=== PATIENT | female | born 1985 | race Caucasian/White ===

== ENCOUNTER 2016-08-25 17:13 | Inpatient (IN) | payer BC ==
[~2016-08-25] VITALS: Ht 162.6 cm; Wt 86.2 kg
[2016-08-25 17:13] VITALS: BP_SYST 149
[2016-08-25] MEDS ORDERED: ASPIRIN 81 MG TAB.CHEW PO ONE (17:30)
[2016-08-25] MEDS ORDERED: IBUPROFEN 800 MG TABLET PO ONE (17:30)
[2016-08-25 17:49] LABS: BASOPHILS % (AUTO) 0.5 % (0.0-2.0); EOSINOPHILS # (AUTO) 0.1 K/uL (0.0-0.4); EOSINOPHILS % (AUTO) 0.8 % (0.0-4.0); HEMATOCRIT 41.7 % (36-48); HEMOGLOBIN 13.6 g/dL (12.0-16.0); LYMPHOCYTES # (AUTO) 3.4 K/uL (1.0-5.5); LYMPHOCYTES % (AUTO) 39.8 % (20.5-51.5); MEAN CORPUSCULAR HEMOGLOBIN 27 pg (27-31); MEAN CORPUSCULAR HGB CONC 33 % (32-36); MEAN CORPUSCULAR VOLUME 82 fL (79.0-98.0); MONOCYTES # (AUTO) 0.6 K/uL (0.0-1.0); MONOCYTES % (AUTO) 7.2 % (1.7-9.3); NEUTROPHILS # (AUTO) 4.5 K/uL (1.8-7.7); NEUTROPHILS % (AUTO) 51.7 % (40.0-70.0); PLATELET COUNT (AUTO) 358 K/uL (130-430); RED BLOOD CELL COUNT(AUTO) 5.12 MIL/uL (4.2-6.2); RED CELL DISTRIBUTION WIDTH 12.6 % (9.0-15.0); WHITE BLOOD COUNT (AUTO) 8.6 K/uL (4.8-10.8)
[2016-08-25 17:58] LABS: CALCIUM 9.1 mg/dL (8.4-11.0); CREATININE 0.95 mg/dL (0.55-1.30); POTASSIUM 3.3 mmol/L (3.5-5.1)
[2016-08-25 18:05] LABS: TOTAL BILIRUBIN 1.1 mg/dL (0.0-1.0); TOTAL PROTEIN, SERUM 8.2 g/dL (6.4-8.3)
[2016-08-25 18:11] LABS: BILIRUBIN,URINE NEGATIVE (NEGATIVE); BLOOD, URINE 1+ (NEGATIVE); CLARITY/URINE CLEAR (CLEAR); COLOR,URINE YELLOW (YELLOW); GLUCOSE,URINE NEGATIVE (NEGATIVE); KETONES,URINE NEGATIVE (NEGATIVE); LEUKOCYTE ESTERASE ,URINE NEGATIVE (NEGATIVE); NITRITE, URINE NEGATIVE (NEGATIVE); PH,URINE 6.5 (5.0-8.0); PROTEIN URINE NEGATIVE (NEGATIVE); UROBILINOGEN,URINE 0.2 (0.2-1.0)
[2016-08-25] MEDS ORDERED: POTASSIUM CHLORIDE 20 MEQ TAB.PRT.SR PO ONE (18:15)
[2016-08-25 18:31] LABS: PROTHROMBIN TIME 10.8 SECS (9.5-12.5)
[2016-08-25 18:35] LABS: BACTERIA,URINE FEW /HPF (None Seen); RBC,URINE 0-3 /HPF (0-3); WBC,URINE 0-3 /HPF (0-3)
[2016-08-25] MEDS ORDERED: KETOROLAC TROMETHAMINE 15 MG VIAL IVP PRN (21:00)
[2016-08-25] MEDS ORDERED: ONDANSETRON HCL 4 MG/2 ML VIAL IVP PRN (21:00)
[2016-08-25] MEDS ORDERED: TEMAZEPAM 15 MG CAPSULE PO PRN (21:00)
[2016-08-25] MEDS ORDERED: ACETAMINOPHEN 325 MG TABLET PO PRN (21:00)
[2016-08-25] MEDS ORDERED: MORPHINE 2 MG/ML INJ. SYRINGE IVP PRN (21:00)
[2016-08-25 21:13] VITALS: BP_SYST 151
[2016-08-25] MEDS ORDERED: LORazepam 1 MG TABLET PO PRN (22:15)
[2016-08-25] MEDS ORDERED: INSULIN REGULAR, HUMAN 100 UNITS/ML, 10 ML VIAL (novoLIN R) SUBCUT PRN (22:15)
[2016-08-25] MEDS ORDERED: DEXTROSE 50% JECT 50 ML DISP.SYRIN IVP PRN (22:15)
[2016-08-26 00:15] VITALS: BP_SYST 122
[2016-08-26 04:01] VITALS: BP_SYST 100
[2016-08-26 04:44] LABS: BARBITURATE, URINE NEGATIVE (NEG <=200); BENZODIAZEPINE, URINE NEGATIVE (NEG <=150); CANNABINOID, URINE NEGATIVE (NEG <=50); COCAINE, URINE NEGATIVE (NEG <=150); METHAMPHETAMINES SCREEN,URINE NEGATIVE (NEG <=500); OPIATE, URINE NEGATIVE (NEG <=100); PHENCYCLIDINE SCREEN,URINE NEGATIVE (NEG <=25); UR TRICYCLIC ANTIDEPRESSANTS NEGATIVE (NEG <=300); URINE AMPHETAMINE NEGATIVE (NEG <=500); URINE METHADONE NEGATIVE (NEG <=200); URINE OXYCODONE SCREEN NEGATIVE (NEG <=100); URINE PROPOXYPHENE SCREEN NEGATIVE (NEG <=300)
[2016-08-26 06:41] LABS: BASOPHILS % (AUTO) 0.4 % (0.0-2.0); EOSINOPHILS % (AUTO) 0.4 % (0.0-4.0); HEMATOCRIT 37.9 % (36-48); HEMOGLOBIN 12.9 g/dL (12.0-16.0); LYMPHOCYTES # (AUTO) 3.1 K/uL (1.0-5.5); LYMPHOCYTES % (AUTO) 42.7 % (20.5-51.5); MEAN CORPUSCULAR HEMOGLOBIN 28 pg (27-31); MEAN CORPUSCULAR HGB CONC 34 % (32-36); MEAN CORPUSCULAR VOLUME 81 fL (79.0-98.0); MONOCYTES # (AUTO) 0.5 K/uL (0.0-1.0); NEUTROPHILS # (AUTO) 3.7 K/uL (1.8-7.7); NEUTROPHILS % (AUTO) 49.5 % (40.0-70.0); PLATELET COUNT (AUTO) 299 K/uL (130-430); RED BLOOD CELL COUNT(AUTO) 4.68 MIL/uL (4.2-6.2); RED CELL DISTRIBUTION WIDTH 12.3 % (9.0-15.0); WHITE BLOOD COUNT (AUTO) 7.3 K/uL (4.8-10.8)
[2016-08-26 06:51] LABS: ANION GAP 6 (5-15); CALCIUM 8.7 mg/dL (8.4-11.0); CHLORIDE 104 mmol/L (98-107); GLUCOSE 106 mg/dL (70-99); POTASSIUM 3.8 mmol/L (3.5-5.1); SODIUM SERUM 139 mmol/L (136-145)
[2016-08-26 06:52] LABS: ALANINE AMINOTRANSFERASE 30 U/L (12-78); ALBUMIN 3.5 g/dL (3.4-4.8); ASPARTATE AMINOTRANSFERASE 17 U/L (10-37); CREATININE 0.97 mg/dL (0.55-1.30); GFR AFRICAN AMERICAN 86 mL/min (>90); TOTAL BILIRUBIN 1.2 mg/dL (0.0-1.0); TOTAL PROTEIN, SERUM 7.4 g/dL (6.4-8.3); UREA NITROGEN, BLOOD 8 mg/dL (8-21)
[2016-08-26 06:53] LABS: CHOLESTEROL 135 mg/dL (<200); FREE T4 (FREE THYROXINE) 0.9 ng/dL (0.6-1.6); HDL CHOLESTEROL 29 mg/dL (>55); LDL CHOLESTEROL 89 mg/dL (<100); TRIGLYCERIDES 131 mg/dL (30-150)
[2016-08-26 07:32] LABS: THYROID STIMULATING HORMONE 1.31 uIu/mL (0.34-4.82)
[2016-08-26 08:00] VITALS: BP_SYST 127
[2016-08-26 12:27] VITALS: BP_SYST 124
[2016-08-26 16:29] VITALS: BP_SYST 126
[2016-08-26] MEDS ORDERED: METO25TA6 PO (16:46)
[2016-08-26 16:51] VITALS: BP_SYST 128
== END 2016-08-26 18:00 | disposition home or self-care (01) | DRG 313 ==
LOC: SED 17:13 → STU 20:12
PROVIDERS: ADMIT Internal Medicine; ATTEND Internal Medicine
DX: R07.89 Other chest pain (principal); E66.9 Obesity, unspecified; E78.5 Hyperlipidemia, unspecified; E87.6 Hypokalemia; J32.9 Chronic sinusitis, unspecified; R03.0 Elevated blood-pressure reading, without diagnosis of hypertension; R73.9 Hyperglycemia, unspecified; R00.0 Tachycardia, unspecified; F41.9 Anxiety disorder, unspecified; Z83.3 Family history of diabetes mellitus; Z68.32 Body mass index [BMI] 32.0-32.9, adult; Z88.1 Allergy status to other antibiotic agents; Z83.49 Family history of other endocrine, nutritional and metabolic diseases; Z82.49 Family history of ischemic heart disease and other diseases of the circulatory system; Z81.8 Family history of other mental and behavioral disorders
CPT/HCPCS: 36415; 70486-TC; 71010; 76700-TC; 80053; 80061; 80307; 81000-TC; 81025; 82306; 82962; 83036; 83735-TC; 83880; 84439; 84443-TC; 84484; 84703; 85025; 85379; 85610-TC; 85730-TC; 93005; 93306; 99285; J1815

== ENCOUNTER 2020-10-23 01:09 | Emergency (ER) | payer BC ==
[~2020-10-23] VITALS: Ht 167.6 cm; Wt 88.5 kg
[~2020-10-23 01:09] MED LIST: METO25TA6 PO
[2020-10-23 01:20] VITALS: BP_SYST 154
[2020-10-23 01:54] LABS: BASOPHILS # (AUTO) 0.1 K/uL (0.0-0.2); BASOPHILS % (AUTO) 0.7 % (0.0-2.0); EOSINOPHILS # (AUTO) 0.1 K/uL (0.0-0.4); EOSINOPHILS % (AUTO) 1.8 % (0.0-4.0); HEMATOCRIT 40.8 % (36-48); HEMOGLOBIN 13.8 g/dL (12.0-16.0); LYMPHOCYTES # (AUTO) 2.5 K/uL (1.0-5.5); LYMPHOCYTES % (AUTO) 30.8 % (20.5-51.5); MEAN CORPUSCULAR HEMOGLOBIN 29 pg (27-31); MEAN CORPUSCULAR HGB CONC 34 % (32-36); MEAN CORPUSCULAR VOLUME 86 fL (79.0-98.0); MONOCYTES # (AUTO) 0.5 K/uL (0.0-1.0); MONOCYTES % (AUTO) 6.7 % (1.7-9.3); NEUTROPHILS # (AUTO) 4.8 K/uL (1.8-7.7); PLATELET COUNT (AUTO) 319 K/uL (130-430); RED BLOOD CELL COUNT(AUTO) 4.77 MIL/uL (4.2-6.2); RED CELL DISTRIBUTION WIDTH 13.1 % (9.0-15.0)
[2020-10-23 02:03] LABS: CALCIUM 8.7 mg/dL (8.4-11.0); CREATININE 1.03 mg/dL (0.55-1.30); POTASSIUM 3.6 mmol/L (3.5-5.1)
[2020-10-23 02:09] LABS: ALBUMIN 3.5 g/dL (3.4-4.8)
[2020-10-23] MEDS ORDERED: LABETALOL 100 MG/ 20ML VIAL ONE (03:05)
[2020-10-23] MEDS ORDERED: METO-442 PO (04:01)
[2020-10-23] MEDS ORDERED: NS 500 ML IV ONE (04:04)
[2020-10-23 04:49] VITALS: BP_SYST 126
== END 2020-10-23 04:49 | disposition home or self-care (01) ==
LOC: SED 01:09
DX: I10 Essential (primary) hypertension (principal); R07.89 Other chest pain; Z79.899 Other long term (current) drug therapy; Z88.1 Allergy status to other antibiotic agents
CPT/HCPCS: 36415; 71045; 80053; 81025; 84484; 85025; 93005; 96361; 96374; 99291; J3490; J7040

== ENCOUNTER 2021-01-01 06:11 | Day surgery (SDC) | payer BC, SELFPAY ==
[~2021-01-01] VITALS: Ht 162.6 cm; Wt 90.7 kg
[~2021-01-01 06:11] MED LIST changes: +METO-442 PO
[2021-01-01] MEDS ORDERED: ACETAMINOPHEN I.V. 1000 MG 100 ML IV ONE (07:41)
[2021-01-01] MEDS ORDERED: LR 1,000 ML IV.SOLN IV ONE (07:47)
[2021-01-01] MEDS ORDERED: SEVOFLURANE 15 MIN GAS INH ONE (07:47)
[2021-01-01] MEDS ORDERED: LEVOFLOXACIN IN DEXTROSE 5 % 500 MG/100 ML PIGGYBACK IV ONE (07:47)
[2021-01-01] MEDS ORDERED: MIDAZOLAM HCL 5 MG/5 ML VIAL IVP ONE (07:47)
[2021-01-01] MEDS ORDERED: METOCLOPRAMIDE HCL 10 MG/2 ML VIAL IVP ONE (07:47)
[2021-01-01] MEDS ORDERED: ONDANSETRON HCL 4 MG/2 ML VIAL IVP ONE (07:47)
[2021-01-01] MEDS ORDERED: OXYTOCIN/0.9 % SODIUM CHLORIDE 20 UNITS/1,000 ML BAG IV ONE (07:47)
[2021-01-01] MEDS ORDERED: fentaNYL CITRATE/PF 100 MCG/2 ML AMP IVP ONE (07:47)
[2021-01-01] MEDS ORDERED: PROPOFOL 200MG/ 20ML VIAL (DIPRIVAN) IV ONE (07:47)
[2021-01-01] MEDS ORDERED: DEXAMETHASONE SOD PHOSPHATE 4 MG/ML VIAL IVP ONE (07:47)
[2021-01-01] MEDS ORDERED: LR 1,000 ML IV SCH (08:30)
[2021-01-01] MEDS ORDERED: MEPERIDINE HCL/PF 25 MG/ML DISP.SYRIN IVP PRN (08:30)
[2021-01-01] MEDS ORDERED: HYDROcodone/ACETAMIN 5-325 MG TAB (NORCO/ VICODIN) PO PRN (08:30)
[2021-01-01] MEDS ORDERED: HYDROmorphone 2 MG/ML VIAL IVP PRN ×2 (08:30)
[2021-01-01] MEDS ORDERED: HYDROmorphone 1 MG/ML INJ. CARTRIDGE IVP PRN (08:30)
[2021-01-01] MEDS ORDERED: OXYCODONE/ACETAMINOPHEN 5-325 TABLET PO PRN ×2 (08:30)
[2021-01-01] MEDS ORDERED: ONDANSETRON HCL 4 MG/2 ML VIAL IVP PRN (08:45)
[2021-01-01] MEDS ORDERED: OXYTOCIN/0.9 % SODIUM CHLORIDE 1,000 ML IV SCH (09:15)
[2021-01-01] MEDS ORDERED: LORazepam 2 MG/ML VIAL IVP ONE ×2 (14:00→14:10)
[2021-01-01] MEDS ORDERED: LORazepam 2 MG/ML VIAL ONE (14:06)
[2021-01-01 15:43] VITALS: BP_SYST 133
== END 2021-01-01 15:15 | disposition home or self-care (01) ==
LOC: SDS 06:11 → SMU 06:14 → SDS 15:15
PROVIDERS: ATTEND Specialist
DX: O03.4 Incomplete spontaneous abortion without complication (principal); I10 Essential (primary) hypertension; F41.9 Anxiety disorder, unspecified; K21.9 Gastro-esophageal reflux disease without esophagitis; Z88.1 Allergy status to other antibiotic agents; Z20.822 Contact with and (suspected) exposure to COVID-19
CPT/HCPCS: 36415; 59840; 87426; 88305; J0131; J1100; J1956; J2060; J2250; J2405; J2590; J2704; J2765; J3010; J7120

== ENCOUNTER 2021-01-04 13:58 | Emergency (ER) | payer BC, SELFPAY ==
[~2021-01-04] VITALS: Ht 162.6 cm; Wt 90.7 kg
[2021-01-04 14:00] VITALS: BP_SYST 165
--- NOTE | 2021-01-04 14:00 | NUR ---
PT TO REMAIN IN THE ER LOBBY UNTIL ER BED BECOMES AVAILABLE. EKG DONE ON ARRIVAL.
--- NOTE | 2021-01-04 14:10 | NUR ---
PT AAO AND AMBULATORY REPORTING INCREASING BLOOD PRESSURE WITH HEADACHE AND DIZZINESS. PT REPORTS CHEST PRESSURE AND RATES IT 5/10 CURRENTLY. PT HAS HISTORY OF HTN AND CURRENTLY TAKES METOPROLOL 50MG BID.
--- NOTE | 2021-01-04 14:28 | NUR ---
PT TO BED 2 GOWNED AND ATTACHED TO MEDICAL ASSISTANT PRN.
--- NOTE | 2021-01-04 14:30 | NUR ---
ER at bedside examining patient.
--- NOTE | 2021-01-04 14:41 | NUR ---
pt. bib with c/o high blood pressure, states she has htn. and anxiety so she checked it last night when not feeling well and again this morning and it was high, states has CHUNG 5/10 and some dizziness when stands.
[2021-01-04] MEDS ORDERED: NS 500 ML IV ONE (14:45)
[2021-01-04 15:18] LABS: HEMOGLOBIN 13.5 g/dL (12.0-16.0); WHITE BLOOD COUNT (AUTO) 7.4 K/uL (4.8-10.8)
[2021-01-04 15:29] LABS: CALCIUM 8.8 mg/dL (8.4-11.0); CREATININE 0.78 mg/dL (0.55-1.30); POTASSIUM 3.2 mmol/L (3.5-5.1)
[2021-01-04 15:34] LABS: BASOPHILS % (AUTO) 0.5 % (0.0-2.0); EOSINOPHILS # (AUTO) 0.1 K/uL (0.0-0.4); EOSINOPHILS % (AUTO) 0.8 % (0.0-4.0); HEMATOCRIT 39.4 % (36-48); LYMPHOCYTES # (AUTO) 2.2 K/uL (1.0-5.5); LYMPHOCYTES % (AUTO) 29.5 % (20.5-51.5); MEAN CORPUSCULAR HEMOGLOBIN 29 pg (27-31); MEAN CORPUSCULAR HGB CONC 34 % (32-36); MEAN CORPUSCULAR VOLUME 86 fL (79.0-98.0); MONOCYTES # (AUTO) 0.4 K/uL (0.0-1.0); MONOCYTES % (AUTO) 6.1 % (1.7-9.3); NEUTROPHILS # (AUTO) 4.6 K/uL (1.8-7.7); NEUTROPHILS % (AUTO) 63.1 % (40.0-70.0); PLATELET COUNT (AUTO) 301 K/uL (130-430); RED CELL DISTRIBUTION WIDTH 13.5 % (9.0-15.0)
[2021-01-04 15:43] LABS: THYROID STIMULATING HORMONE 0.43 uIu/mL (0.36-3.74)
--- NOTE | 2021-01-04 15:55 | NUR ---
ambulating to bathroom, denies headache at this time
[2021-01-04] MEDS ORDERED: POTASSIUM CHLORIDE 20 MEQ TAB.PRT.SR PO ONE (16:00)
--- NOTE | 2021-01-04 16:37 | NUR ---
CHEST XRAY BEING DONE AT BEDSIDE
--- NOTE | 2021-01-04 18:34 | NUR ---
Dr. Miller at bedside discussing CT scan with patient
[2021-01-04] MEDS ORDERED: IOHEXOL 350 mgI/mL, 150 ML INFUS..BTL IV ONE (19:13)
--- NOTE | 2021-01-04 19:25 | NUR ---
PT TO CT SCAN BY WHEELCHAIR.
--- NOTE | 2021-01-04 19:35 | NUR ---
PT BACK FROM RADIOLOGY AWAITING CT RESULTS.
--- NOTE | 2021-01-04 20:10 | NUR ---
PT RESTING QUIETLY IN NO DISTRESS AWAITING DISPOSITION.
--- NOTE | 2021-01-04 21:00 | NUR ---
Patient given written and verbal discharge instructions and verbalizes understanding. DR. SUMMER ORTIZ MD discussed with patient the results and treatment provided. Patient in stable condition. ID arm band removed. IV catheter removed intact and dressing applied, no active bleeding. Patient educated on pain management and to follow up with PMD. Pain Scale 0/10. Opportunity for questions provided and answered.
[2021-01-04 21:13] VITALS: BP_SYST 148
== END 2021-01-04 21:13 | disposition home or self-care (01) ==
LOC: SED 13:58
DX: I10 Essential (primary) hypertension (principal); E87.6 Hypokalemia; R07.9 Chest pain, unspecified; F41.9 Anxiety disorder, unspecified; Z88.8 Allergy status to other drugs, medicaments and biological substances; Z79.899 Other long term (current) drug therapy
CPT/HCPCS: 36415; 71045; 71275; 76376; 80048; 83735; 84443; 85025; 85379; 99285; Q9967; 93005

== ENCOUNTER 2021-12-05 12:49 | Emergency (ER) | payer BC, OTHER ==
[~2021-12-05] VITALS: Ht 162.6 cm; Wt 90.7 kg
[2021-12-05 12:54] VITALS: BP_SYST 155
[2021-12-05] MEDS ORDERED: METOPROLOL TARTRATE 25 MG TABLET PO ONE (13:30)
[2021-12-05 13:53] LABS: BASOPHILS # (AUTO) 0.1 K/uL (0.0-0.2); BASOPHILS % (AUTO) 0.9 % (0.0-2.0); EOSINOPHILS # (AUTO) 0.1 K/uL (0.0-0.4); EOSINOPHILS % (AUTO) 1.1 % (0.0-4.0); HEMATOCRIT 40.2 % (36-48); HEMOGLOBIN 13.9 g/dL (12.0-16.0); LYMPHOCYTES # (AUTO) 1.9 K/uL (1.0-5.5); LYMPHOCYTES % (AUTO) 33.2 % (20.5-51.5); MEAN CORPUSCULAR HEMOGLOBIN 30 pg (27-31); MEAN CORPUSCULAR HGB CONC 34 % (32-36); MEAN CORPUSCULAR VOLUME 88 fL (79.0-98.0); MONOCYTES # (AUTO) 0.4 K/uL (0.0-1.0); MONOCYTES % (AUTO) 6.7 % (1.7-9.3); NEUTROPHILS # (AUTO) 3.3 K/uL (1.8-7.7); NEUTROPHILS % (AUTO) 58.1 % (40.0-70.0); PLATELET COUNT (AUTO) 343 K/uL (130-430); RED BLOOD CELL COUNT(AUTO) 4.56 MIL/uL (4.2-6.2); RED CELL DISTRIBUTION WIDTH 14.1 % (9.0-15.0); WHITE BLOOD COUNT (AUTO) 5.8 K/uL (4.8-10.8)
[2021-12-05 14:08] LABS: CALCIUM 8.2 mg/dL (8.4-11.0); CREATININE 0.81 mg/dL (0.55-1.30); POTASSIUM 3.9 mmol/L (3.5-5.1)
[2021-12-05 14:13] LABS: ALBUMIN 3.1 g/dL (3.4-4.8)
--- NOTE | 2021-12-05 14:23 | NUR ---
RECEIVED PT FROM [facility]. PT IS BEING SEEN FOR HIGH BLOOD PRESSURE 155/93. PT STATES SHE HAS H/A 10/16. RESP E/U. NSR. DENIES N/V/D/C. AAOX4. AMBULATORY. SIDERAILS UP X2.
--- NOTE | 2021-12-05 15:03 | NUR ---
B/P NOW 144/107 (119), HR 53. PT SLEEPING PEACEFULLY.
[2021-12-05 15:14] LABS: BILIRUBIN,URINE NEGATIVE (NEGATIVE); BLOOD, URINE 3+ (NEGATIVE); CLARITY/URINE CLEAR (CLEAR); COLOR,URINE YELLOW (YELLOW); GLUCOSE,URINE NEGATIVE (NEGATIVE); KETONES,URINE NEGATIVE (NEGATIVE); LEUKOCYTE ESTERASE ,URINE 2+ (NEGATIVE); NITRITE, URINE NEGATIVE (NEGATIVE); PH,URINE 6.5 (5.0-8.0); PROTEIN URINE NEGATIVE (NEGATIVE); UROBILINOGEN,URINE 0.2 (0.2-1.0)
[2021-12-05 15:31] LABS: BACTERIA,URINE RARE /HPF (None Seen)
--- NOTE | 2021-12-05 15:40 | NUR ---
DR. WAY AT BEDSIDE.
[2021-12-05 16:06] VITALS: BP_SYST 134
== END 2021-12-05 16:06 | disposition home or self-care (01) ==
LOC: SED 12:49
DX: O16.5 Unspecified maternal hypertension, complicating the puerperium (principal); R51.9 Headache, unspecified; Z88.1 Allergy status to other antibiotic agents; Z79.899 Other long term (current) drug therapy
CPT/HCPCS: 36415; 80053; 81000; 85025; 87086; 99283